=== PATIENT | female | born 1970 | race Asian ===

== ENCOUNTER 2021-07-30 09:36 | Emergency (ER) | payer OTHER ==
[~2021-07-30] VITALS: Ht 162.6 cm; Wt 61.7 kg
[2021-07-30 09:36] VITALS: BP_SYST 153
--- NOTE | 2021-07-30 09:36 | NUR ---
Patient to ER bed H1 to gown for evaluation. Side rails up.
--- NOTE | 2021-07-30 09:40 | NUR ---
PT CAME IN FROM HOME C/O LEFT 2ND TOE PAIN AFTER STUBBING IT 2 WEEKS AGO, DEFORMITY PRESENT. PT IS ABLE TO AMBULATE, [id number], VSS
--- NOTE | 2021-07-30 09:54 | NUR ---
ER DR. POLO EXAMINING PT
--- NOTE | 2021-07-30 10:20 | NUR ---
PORTABLE XRAY AT THE BEDSIDE
[2021-07-30 12:10] VITALS: BP_SYST 153
--- NOTE | 2021-07-30 12:13 | NUR ---
Patient given written and verbal discharge instructions and verbalizes understanding. ER MD discussed with patient the results and treatment provided. Patient in stable condition. ID arm band removed. No Rx given. Patient educated on pain management and to follow up with PMD. Pain Scale 2/10. Opportunity for questions provided and answered. Medication side effect fact sheet provided.
== END 2021-07-30 12:13 | disposition home or self-care (01) ==
LOC: SED 09:36
DX: M79.676 Pain in unspecified toe(s) (principal)
CPT/HCPCS: 99283

== ENCOUNTER 2022-05-30 08:12 | Emergency (ER) | payer OTHER ==
[~2022-05-30] VITALS: Ht 162.6 cm; Wt 63.0 kg
[2022-05-30 08:16] VITALS: BP_SYST 143
--- NOTE | 2022-05-30 08:24 | NUR ---
RASH ABD AM YESTERDAY THAT SPREADED TO LEFT FOOT, TAKING MEDS FOR SHINGLES SINCE SAT
--- NOTE | 2022-05-30 08:31 | NUR ---
DR ORTIZ in [facility] for exam
[2022-05-30] MEDS ORDERED: MED4 PO (08:47)
--- NOTE | 2022-05-30 09:00 | NUR ---
Patient given written and verbal discharge instructions and verbalizes understanding. ER MD discussed with patient the results and treatment provided. Patient in stable condition. Rx of given. Patient educated on pain management and to follow up with PMD. Pain Scale [0]. Opportunity for questions provided and answered. Medication side effect fact sheet provided.
== END 2022-05-30 08:59 | disposition home or self-care (01) ==
LOC: SED 08:12
DX: R21 Rash and other nonspecific skin eruption (principal); T78.49XA Other allergy, initial encounter; X58.XXXA Exposure to other specified factors, initial encounter; Z79.899 Other long term (current) drug therapy
CPT/HCPCS: 99283